=== PATIENT | male | born 1955 | race Caucasian/White ===

== ENCOUNTER → 2021-07-10 | Day surgery (SDC) | payer OTHER ==
[~2021-07-10] MED LIST: LOPRESSOR 50 MG50 MG PO
[2021-07-10 10:20] LABS: HEMOGLOBIN 13.3 gm/dl (14.0-17.5); RED BLOOD COUNT 4.59 M/UL (4.20-5.50); WHITE BLOOD COUNT 7.4 K/UL (4.5-11.0)
[2021-07-10 10:41] LABS: BUN/CREATININE RATIO 11 (0-10)
== END | disposition home or self-care (01) ==
LOC: OR 08:58
PROVIDERS: Anesthesiology
DX: C14.0 Malignant neoplasm of pharynx, unspecified (principal); Z92.21 Personal history of antineoplastic chemotherapy; Z92.3 Personal history of irradiation; Z20.822 Contact with and (suspected) exposure to COVID-19; Z85.46 Personal history of malignant neoplasm of prostate; Z88.1 Allergy status to other antibiotic agents; Z87.891 Personal history of nicotine dependence
CPT/HCPCS: 36415; 77001; 80048; 85027; 93005; C1769; C1788; J0690; J1100; J1642; J2001; J2405; J2704; J7030; J7040; J7120; Q9967